=== PATIENT | male | born 1965 | race Caucasian/White ===

== ENCOUNTER 2020-05-01 00:36 | Emergency (ER) | payer OTHER ==
[2020-05-01] MEDS ORDERED: Sodium Chloride 0.9% 2.5 ML Syringe FLUSH PRN (00:53)
[2020-05-01] MEDS ORDERED: Sodium Chloride 0.9% 10 ML Syringe FLUSH PRN (00:53)
--- NOTE | 2020-05-01 00:57 | EDM.PDOC ---
ED HPI GENERAL MEDICAL PROBLEM - General Chief Complaint: Chest Pain Stated Complaint: HEART ISSUES Time Seen by Provider: 05/01/20 00:45 - History of Present Illness INITIAL COMMENTS - FREE TEXT/NARRATIVE: History of present illness: [] [place] like he had pain in his left chest 2 hours ago. He felt diaphoretic. He decided to walk to see if he could get it to go away because it might be anxiety. He ended up walking about 2 miles to get here and by the time he arrived his pain was better. He was still diaphoretic. If not particularly hot out. The patient in the last few years has had 2 episodes where he was evaluated by physicians in hospital because of near syncope. He said the first time he thinks he would completely out and had to be revived. The patient had an evaluation started for a pacemaker in the past but did not follow-up and finish and did not get any ultimate recommendation made. The patient is a non-smoker. He is morbidly obese patient is lost quite a bit of his weight but still remains obese. He personally has not had a heart attack. Review of systems: As per history of present illness and below otherwise all systems reviewed and negative. Past medical history: As per history of present illness and as reviewed below otherwise noncontributory. Surgical history: As per history of present illness and as reviewed below otherwise noncontributory. Social history: No reported history of drug or alcohol abuse. Family history: As per history of present illness and as reviewed below otherwise noncontributory. Physical exam: Constitutional - well developed, well-nourished and in no acute distress HEENT - normocephalic, no evidence of trauma - external nose and mouth normal - no mass in neck and no JVD - mucosae moist EYES - full EOM, PERRL, no icterus - no evidence of inflammation, injection, or drainage Respiratory - no respiratory distress, equal bilateral expansion, lungs clear to auscultation and no abnormal lung sounds Cardiovascular - Regular Rhythm with S1 and S2 appreciated and no murmur, gallop or rub. GI - abdomen soft without distension or organomegaly - normal bowel sounds - no guard or rebound Musculoskeletal no gross deformity of long bones or joints - no tenderness, swelling or edema Neurologic - Alert and oriented times four - CN II-XII grossly intact - motor sensory and coordination symmetrically normal Psychiatric - appropriate mood and affect with normal thought content Hematologic - No petechiae or purpura - mucosa appropriate color and sclera not pale - normal nail bed color and refill Integument -paretic-no rash or evidence of trauma - normal turgor Diagnostics: [] Therapeutics: [] Impression: [] Plan: [] Definitive disposition and diagnosis as appropriate pending reevaluation and review of above. - Related Data Allergies Allergy/AdvReac Type Severity Reaction Status Date / Time No Known Allergies Allergy Verified 05/01/20 00:57 Home Meds: Home Meds Anti Cholesterol Med 05/01/20 [History] Anti Htn Med 05/01/20 [History] ED ROS GENERAL - Review of Systems Review Of Systems: Comprehensive ROS is negative, except as noted in HPI. ED EXAM, GENERAL - Physical Exam Exam: See Below Free Text/Narrative:: My physical exam is in the HPI EKG INTERPRETATION EKG Date: 05/01/20 Rhythm: Other (Sinus tachycardia) Rate (Beats/Min): 101 QRS: Other (Anteroseptal Q waves) Comparison: NA - No Prior EKG EKG Interpretation Comments: Impression no obvious acute injury Course - Vital Signs Last Recorded V/S: Last Vital Signs Temp 96.5 F L 05/01/20 00:37 Pulse 77 05/01/20 02:37 Resp 20 05/01/20 02:37 BP 138/83 05/01/20 02:37 Pulse Ox 96 05/01/20 02:37 The patient had no further pain in the department. 4 hours after his onset of pain the troponin was less than 0.05. Patient was discharged in satisfactory condition. He has Holter monitor at home and cardiology follow-up appointment. - Orders/Labs/Meds Orders: Active Orders 24 hr Category Date Time Status Cardiac Monitoring [RC] . DIRECTED Care 05/01/20 00:53 Active EKG Documentation Completion [RC] AM Care 05/01/20 00:53 Active Sodium Chloride 0.9% [Saline Flush] Med 05/01/20 00:53 Active 10 ml FLUSH ASDIRECTED PRN Sodium Chloride 0.9% [Saline Flush] Med 05/01/20 00:53 Active 2.5 ml FLUSH ASDIRECTED PRN Saline Lock Insert [OM.PC] Stat Oth 05/01/20 00:53 Ordered Medication Orders Sodium Chloride (Saline Flush) 10 ml FLUSH ASDIRECTED PRN PRN Reason: Keep Vein Open Sodium Chloride (Saline Flush) 2.5 ml FLUSH ASDIRECTED PRN PRN Reason: Keep Vein Open Labs: Laboratory Tests 05/01/20 05/01/20 05/01/20 Range/Units 00:52 00:52 02:50 WBC 6.49 (4.0-11.0) K/uL RBC 4.92 (4.50-5.90) M/uL Hgb 14.4 (13.0-17.0) g/dL Hct 42.2 (38.0-50.0) % MCV 85.8 (80.0-98.0) fL MCH 29.3 (27.0-32.0) pg MCHC 34.1 (31.0-37.0) g/dL RDW Std Deviation 44.4 (28.0-62.0) fl RDW Coeff of Jenny 14 (11.0-15.0) % Plt Count 256 (150-400) K/uL MPV 9.60 (7.40-12.00) fL Neut % (Auto) 53.8 (48.0-80.0) % Lymph % (Auto) 30.8 (16.0-40.0) % [place] % (Auto) 11.4 (0.0-15.0) % Eos % (Auto) 3.5 (0.0-7.0) % Baso % (Auto) 0.5 (0.0-1.5) % Neut # (Auto) 3.5 (1.4-5.7) K/uL Lymph # (Auto) 2.0 (0.6-2.4) K/uL [place] # (Auto) 0.7 (0.0-0.8) K/uL Eos # (Auto) 0.2 (0.0-0.7) K/uL Baso # (Auto) 0.0 (0.0-0.1) K/uL Sodium 140 (136-148) mmol/L Potassium 3.5 (3.5-5.1) mmol/L Chloride 104 (98-107) mmol/L Carbon Dioxide 26.0 (21.0-32.0) mmol/L BUN 17 (7.0-18.0) mg/dL Creatinine 1.0 (0.8-1.3) mg/dL Est Cr Clr Drug Dosing TNP Estimated GFR (MDRD) > 60.0 ml/min Glucose 109 H (74-106) mg/dL Calcium 7.9 L (8.5-10.1) mg/dL Total Bilirubin 0.4 (0.2-1.0) mg/dL AST 27 (15-37) IU/L ALT 35 (14-63) IU/L Alkaline Phosphatase 94 (46-116) U/L Troponin I < 0.050 < 0.050 (0.000-0.056) ng/mL Total Protein 6.9 (6.4-8.2) g/dL Albumin 3.7 (3.4-5.0) g/dL Globulin 3.2 (2.6-4.0) g/dL Albumin/Globulin Ratio 1.2 (0.9-1.6) Lipase 167 (73-393) U/L Meds: Medications Generic Name Dose Route Start Last Admin Trade Name Freq PRN Reason Stop Dose Admin Sodium Chloride 10 ml 05/01/20 00:53 Saline Flush FLUSH ASDIRECTED PRN Keep Vein Open Sodium Chloride 2.5 ml 05/01/20 00:53 Saline Flush FLUSH ASDIRECTED PRN Keep Vein Open Departure - Departure Time of Disposition: 03:17 Disposition: Home, Self-Care 01 Condition: Good Clinical Impression: Atypical chest pain - Discharge Information Instructions: Nonspecific Chest Pain, Adult Referrals: PCP,None [Primary Care Provider] - Forms: ED Department Discharge Additional Instructions: He should probably take an aspirin daily. Please have your corporate real estate manager reattach her Holter monitor. It would be nice if you had the symptoms while you are on the monitor. [facility] - cardiology [address] [place] [id number] [facility] - Primary Care [address] [place] [id number] [id number] The following information is given to patients seen in the emergency department who are being discharged to home. This information is to outline your options for follow-up care. We provide all patients seen in our emergency department with a follow-up referral. The need for follow-up, as well as the timing and circumstances, are variable depending upon the specifics of your emergency department visit. If you don't have a primary care physician on staff, we will provide you with a referral. We always advise you to contact your personal physician following an emergency department visit to inform them of the circumstance of the visit and for follow-up with them and/or the need for any referrals to a consulting specialist. The emergency department will also refer you to a specialist when appropriate. T his referral assures that you have the opportunity for follow-up care with a specialist. All of these measure are taken in an effort to provide you with optimal care, which includes your follow-up. Under all circumstances we always encourage you to contact your private physician who remains a resource for coordinating your care. When calling for follow-up care, please make the office aware that this follow-up is from your recent emergency room visit. If for any reason you are refused follow-up, please contact the [facility] Emergency Department at and asked to speak to the emergency department charge nurse. Sepsis Event Note (ED) - Focused Exam Vital Signs: Vital Signs Temp Pulse Resp BP Pulse Ox 05/01/20 02:37 77 20 138/83 96 05/01/20 01:53 82 20 143/87 H 96 05/01/20 00:37 96.5 F L 104 H 20 182/109 H 100 - My Orders Last 24 Hours: My Active Orders 05/01/20 00:53 Cardiac Monitoring [RC] . DIRECTED EKG Documentation Completion [RC] AM Sodium Chloride 0.9% [Saline Flush] 10 ml FLUSH ASDIRECTED PRN Sodium Chloride 0.9% [Saline Flush] 2.5 ml FLUSH ASDIRECTED PRN Saline Lock Insert [OM.PC] Stat - Assessment/Plan Last 24 Hours: My Active Orders 05/01/20 00:53 Cardiac Monitoring [RC] . DIRECTED EKG Documentation Completion [RC] AM Sodium Chloride 0.9% [Saline Flush] 10 ml FLUSH ASDIRECTED PRN Sodium Chloride 0.9% [Saline Flush] 2.5 ml FLUSH ASDIRECTED PRN Saline Lock Insert [OM.PC] Stat
[2020-05-01 01:20] LABS: BLOOD UREA NITROGEN,BUN 17 mg/dL (7.0-18.0); CHLORIDE,CL 104 mmol/L (98-107); GLUCOSE RANDOM 109 mg/dL (74-106); LIPASE 167 U/L (73-393); POTASSIUM,K 3.5 mmol/L (3.5-5.1); SODIUM,NA 140 mmol/L (136-148)
--- NOTE | 2020-05-01 01:40 | CR ---
INDICATION: Chest pain TECHNIQUE: Chest radiograph 1 view COMPARISON: None FINDINGS: Mediastinum: The mediastinum is normal in appearance. The heart silhouette is normal in size and morphology. Lung: Both lungs are unremarkable in appearance with very small lung volumes. No sign of pleural effusion seen. No pneumothorax is identified. Bone and Soft tissue: Unremarkable for age. IMPRESSION: 1. No acute cardiopulmonary disease is seen. Dictated by: Zaire Cohen MD @ 05/01/2020 01:40:26 (Electronically Signed)
== END 2020-05-01 03:29 | disposition home or self-care (01) ==
LOC: MW.ED 00:36
DX: R07.89 Other chest pain (principal); R00.0 Tachycardia, unspecified; E66.01 Morbid (severe) obesity due to excess calories
CPT/HCPCS: 36415; 71045; 71045-26; 80053; 83690; 84484; 85025; 93005; 99283; 99285-25

== ENCOUNTER 2020-10-06 15:49 | Emergency (ER) | payer OTHER ==
--- NOTE | 2020-10-06 17:50 | EDM.PDOC ---
ED HPI GENERAL MEDICAL PROBLEM - General Chief Complaint: General Stated Complaint: MEDICAL CLEARANCE Time Seen by Provider: 10/06/20 15:59 Source of Information: Reports: Patient History Limitations: Reports: No Limitations - History of Present Illness INITIAL COMMENTS - FREE TEXT/NARRATIVE: HISTORY AND PHYSICAL: History of present illness: Patient is a 55-year-old male presenting to the ED a.m. on first night custody for medical screening for incarceration. Complains of suicidal ideation since July. Patient states he has made multiple self-harm attempts in the hopes that they would kill him. Patient admits to a history of major depressive disorder, alcohol use disorder, and substance use disorder of meth via intravenous injection. Patient states he last injected methamphetamine 1 week ago. Patient states that he injected methamphetamine into his muscles and "nerves" and often proceeds to try to break the needles off in his arm in hopes that they will get infected and kill him. Patient also admits to injecting isopropyl alcohol and hydrogen peroxide into his muscles/nerves in hopes that he will sustain enough trauma to kill himself. The timeline of patients self harm is difficult to follow due to pressured speech/flight of ideas. Patient also states that he also attempted genital mutilation by constricting a hair tie around his scrotum and penis and left it there for "4 to 5 days" in hopes that his genitals would fall off because he "does not deserve sex," "does not deserve to be a man," and "does not deserve love." Patient states that due to this, he experiences pain with erections but the redness, swelling, and bruising from this is now resolved. Patient states that his depression is alleviated by being around other people and talking to other people, and he states that if he is alone, especially in a penitentiary cell, he will look for ways to harm himself when no one is watching. Patient denies any current access to firearms. Patient denies fever, chills, shortness of breath, or cough. Denies headache, neck stiff ness, change in vision, syncope, or near syncope. Denies nausea, vomiting, abdominal pain, diarrhea, and constipation. Has not noted any blood in urine or stool. Patient has been eating and drinking appropriately. Review of systems: As per history of present illness and below otherwise all systems reviewed and negative. Past medical history: As per history of present illness and as reviewed below otherwise noncontributory. Surgical history: As per history of present illness and as reviewed below otherwise no ncontributory. Social history: See social history for further information Family history: As per history of present illness and as reviewed below otherwise noncontributory. Physical exam: General: Patient is alert, oriented, and in no acute distress. Patient sitting comfortably on exam table. Vital stable and reviewed by me. HEENT: Atraumatic, normocephalic, pupils equal and reactive bilaterally, negative for conjunctival pallor or scleral icterus, mucous membranes moist, TMs normal bilaterally, throat clear, neck supple, nontender, trachea midline. No drooling or trismus noted. No meningeal signs. No hot potato voice noted. Lungs: Clear to auscultation, breath sounds equal bilaterally, chest nontender. Heart: S1S2, regular rate and rhythm without overt murmur Abdomen: Soft, nondistended, nontender. Negative for masses or hepatosplenomegaly. Negative for costovertebral tenderness. Pelvis: Stable nontender. Genitourinary: Welder Fitter Arc at bedside MAYRA Cherry. No hernias noted. Testicles are round, soft, without masses. No scrotal tenderness. No erythema, penile drainage, masses, lesions, or rashes noted. Rectal: No obvious external masses or hernias. State is appropriate in size and is nontender. Rectal tone is appropriate. Skin: Numerous injection scars noted on the bilateral antecubital fossa, bilateral forearms, and bilateral anterior upper arm with various ecchymosis noted to bilateral forearms. Full ROM of all extremities without pain or deficit. Radial pulses grossly intact bilaterally with cap refill < 2 seconds. Intact sensation to light and deep touch of bilateral upper extremities. Compartments are soft of bilateral upper extremities. Otherwise, intact, warm, dry. No lesions or rashes noted. Extremities: See skin. Otherwise, atraumatic, negative for cords or calf pain. Neurovascular unremarkable. Neuro: Awake, alert, oriented. Cranial nerves II through XII unremarkable. Cerebellum unremarkable. Motor and sensory unremarkable throughout. Exam nonfocal. Notes: On initial exam, patient does have pressured speech and flight of ideas. He does admit to using methamphetamine chronically and he does have bruising and track jones on his bilateral forearms consistent with his HPI. He does express suicidal ideation, and although he does not have an exact plan at this time, he intends to self-harm once he is left alone/ he expresses improvement with talking to people. He has had several attempts with self- mutilation with the intent to harm himself and I do feel that patient requires inpatient psychiatric evaluation. [facility] at capacity. [facility] at capacity. [facility], Dr. Bullock, psychiatry, consulted on patient and will fax patient information pending accepting. Dr. Bullock accepting at 22:00. EMS arranged. Diagnostics: CBC, CMP, UA, UDS, troponin, lipase, CXR, x-ray left humerus, x-ray right humerus, x-ray left forearm, x-ray right forearm Therapeutics: Zyprexa 20mg PO Impression: Suicidal ideation Self mutilation Methamphetamine use Pressured speech / flight of ideas Plan: Transfer to [facility] via EMS to Dr. Bullock Definitive disposition and diagnosis as appropriate pending reevaluation and rev iew of above. - Related Data Allergies Allergy/AdvReac Type Severity Reaction Status Date / Time No Known Allergies Allergy Verified 10/06/20 16:10 Home Meds: Home Meds Anti Cholesterol Med 05/01/20 [History] Anti Htn Med 05/01/20 [History] Past Medical History Cardiovascular History: Reports: None, High Cholesterol, Hypertension Psychiatric History: Reports: Anxiety, Suicidal Ideation - Past Surgical History Cardiovascular Surgical History: Reports: None Social & Family History - Family History Family Medical History: No Pertinent Family History - Tobacco Use Tobacco Use Status *Q: Never Tobacco User - Caffeine Use Caffeine Use: Reports: None - Recreational Drug Use Recreational Drug Use: No ED ROS GENERAL - Review of Systems Review Of Systems: Comprehensive ROS is negative, except as noted in HPI. ED EXAM, GENERAL - Physical Exam Exam: See Below (see dictation) Course - Vital Signs Last Recorded V/S: Last Vital Signs Temp 97.0 F 10/06/20 16:11 Pulse 70 10/06/20 22:10 Resp 16 10/06/20 22:10 BP 121/83 10/06/20 22:10 Pulse Ox 95 10/06/20 22:10 - Orders/Labs/Meds Labs: Laboratory Tests 10/06/20 10/06/20 10/06/20 Range/Units 17:35 17:35 17:35 WBC 9.87 (4.0-11.0) K/uL RBC 5.56 (4.50-5.90) M/uL Hgb 15.5 (13.0-17.0) g/dL Hct 44.8 (38.0-50.0) % MCV 80.6 (80.0-98.0) fL MCH 27.9 (27.0-32.0) pg MCHC 34.6 (31.0-37.0) g/dL RDW Std Deviation 39.0 (28.0-62.0) fl RDW Coeff of Jenny 13 (11.0-15.0) % Plt Count 264 (150-400) K/uL MPV 9.90 (7.40-12.00) fL Neut % (Auto) 78.9 (48.0-80.0) % Lymph % (Auto) 13.3 L (16.0-40.0) % [place] % (Auto) 7.1 (0.0-15.0) % Eos % (Auto) 0.5 (0.0-7.0) % Baso % (Auto) 0.2 (0.0-1.5) % Neut # (Auto) 7.8 H (1.4-5.7) K/uL Lymph # (Auto) 1.3 (0.6-2.4) K/uL [place] # (Auto) 0.7 (0.0-0.8) K/uL Eos # (Auto) 0.1 (0.0-0.7) K/uL Baso # (Auto) 0.0 (0.0-0.1) K/uL Nucleated RBC % 0.0 /100WBC Nucleated RBCs # 0 K/uL Sodium 139 (136-148) mmol/L Potassium 4.1 (3.5-5.1) mmol/L Chloride 101 (98-107) mmol/L Carbon Dioxide 23.6 (21.0-32.0) mmol/L BUN 25 H (7.0-18.0) mg/dL Creatinine 1.4 H (0.8-1.3) mg/dL Est Cr Clr Drug Dosing 68.17 mL/min Estimated GFR (MDRD) 52.8 ml/min Glucose 102 (74-106) mg/dL Calcium 9.0 (8.5-10.1) mg/dL Magnesium 2.5 H (1.8-2.4) mg/dL Total Bilirubin 0.9 (0.2-1.0) mg/dL AST 21 (15-37) IU/L ALT 27 (14-63) IU/L Alkaline Phosphatase 89 (46-116) U/L Troponin I < 0.050 (0.000-0.056) ng/mL Total Protein 7.8 (6.4-8.2) g/dL Albumin 4.1 (3.4-5.0) g/dL Globulin 3.7 (2.6-4.0) g/dL Albumin/Globulin Ratio 1.1 (0.9-1.6) Lipase 123 (73-393) U/L TSH 3rd Generation 1.42 (0.36-3.74) uIU/mL Urine Color Urine Appearance Urine pH (5.0-8.0) Ur Specific [place] (1.001-1.035) Urine Protein (NEGATIVE) mg/dL Urine Glucose (UA) (NEGATIVE) mg/dL Urine Ketones (NEGATIVE) mg/dL Urine Occult Blood (NEGATIVE) Urine Nitrite (NEGATIVE) Urine Bilirubin (NEGATIVE) Urine Ictotest Urine Urobilinogen (<2.0) EU/dL Ur Leukocyte Esterase (NEGATIVE) U Hyaline Cast (Auto) (0-2/LPF) Urine RBC (0-2/HPF) Urine WBC (0-5/HPF) Ur Epithelial Cells (NONE-FEW) Urine Bacteria (NEGATIVE) Salicylates <0.2 (0-20) mg/dL Urine Opiates Screen (NEGATIVE) Ur Oxycodone Screen (NEGATIVE) Urine Methadone Screen (NEGATIVE) Acetaminophen <2.0 ug/mL Ur Barbiturates Screen (NEGATIVE) Ur Phencyclidine Scrn (NEGATIVE) Ur Amphetamine Screen (NEGATIVE) U Methamphetamines Scrn (NEGATIVE) U Benzodiazepines Scrn (NEGATIVE) U Cocaine Metab Screen (NEGATIVE) U Marijuana (THC) Screen (NEGATIVE) Ethyl Alcohol < 3.0 mg/dL SARS-CoV-2 RNA (MARCIE) (NEGATIVE) 10/06/20 10/06/20 10/06/20 Range/Units 18:18 19:15 19:15 WBC (4.0-11.0) K/uL RBC (4.50-5.90) M/uL Hgb (13.0-17.0) g/dL Hct (38.0-50.0) % MCV (80.0-98.0) fL MCH (27.0-32.0) pg MCHC (31.0-37.0) g/dL RDW Std Deviation (28.0-62.0) fl RDW Coeff of Jenny (11.0-15.0) % Plt Count (150-400) K/uL MPV (7.40-12.00) fL Neut % (Auto) (48.0-80.0) % Lymph % (Auto) (16.0-40.0) % [place] % (Auto) (0.0-15.0) % Eos % (Auto) (0.0-7.0) % Baso % (Auto) (0.0-1.5) % Neut # (Auto) (1.4-5.7) K/uL Lymph # (Auto) (0.6-2.4) K/uL [place] # (Auto) (0.0-0.8) K/uL Eos # (Auto) (0.0-0.7) K/uL Baso # (Auto) (0.0-0.1) K/uL Nucleated RBC % /100WBC Nucleated RBCs # K/uL Sodium (136-148) mmol/L Potassium (3.5-5.1) mmol/L Chloride (98-107) mmol/L Carbon Dioxide (21.0-32.0) mmol/L BUN (7.0-18.0) mg/dL Creatinine (0.8-1.3) mg/dL Est Cr Clr Drug Dosing mL/min Estimated GFR (MDRD) ml/min Glucose (74-106) mg/dL Calcium (8.5-10.1) mg/dL Magnesium (1.8-2.4) mg/dL Total Bilirubin (0.2-1.0) mg/dL AST (15-37) IU/L ALT (14-63) IU/L Alkaline Phosphatase (46-116) U/L Troponin I (0.000-0.056) ng/mL Total Protein (6.4-8.2) g/dL Albumin (3.4-5.0) g/dL Globulin (2.6-4.0) g/dL Albumin/Globulin Ratio (0.9-1.6) Lipase (73-393) U/L TSH 3rd Generation (0.36-3.74) uIU/mL Urine Color YELLOW Urine Appearance CLEAR Urine pH 5.5 (5.0-8.0) Ur Specific [place] >= 1.030 (1.001-1.035) Urine Protein TRACE H (NEGATIVE) mg/dL Urine Glucose (UA) NEGATIVE (NEGATIVE) mg/dL Urine Ketones NEGATIVE (NEGATIVE) mg/dL Urine Occult Blood NEGATIVE (NEGATIVE) Urine Nitrite NEGATIVE (NEGATIVE) Urine Bilirubin SMALL H (NEGATIVE) Urine Ictotest NEGATIVE Urine Urobilinogen 0.2 (<2.0) EU/dL Ur Leukocyte Esterase NEGATIVE (NEGATIVE) U Hyaline Cast (Auto) FEW (0-2/LPF) Urine RBC 0-1 (0-2/HPF) Urine WBC 0-1 (0-5/HPF) Ur Epithelial Cells RARE (NONE-FEW) Urine Bacteria FEW (NEGATIVE) Salicylates (0-20) mg/dL Urine Opiates Screen NEGATIVE (NEGATIVE) Ur Oxycodone Screen NEGATIVE (NEGATIVE) Urine Methadone Screen NEGATIVE (NEGATIVE) Acetaminophen ug/mL Ur Barbiturates Screen NEGATIVE (NEGATIVE) Ur Phencyclidine Scrn NEGATIVE (NEGATIVE) Ur Amphetamine Screen POSITIVE (NEGATIVE) U Methamphetamines Scrn POSITIVE (NEGATIVE) U Benzodiazepines Scrn NEGATIVE (NEGATIVE) U Cocaine Metab Screen NEGATIVE (NEGATIVE) U Marijuana (THC) Screen NEGATIVE (NEGATIVE) Ethyl Alcohol mg/dL SARS-CoV-2 RNA (MARCIE) NEGATIVE (NEGATIVE) Meds: Medications Discontinued Medications Generic Name Dose Route Start Last Admin Trade Name Freq PRN Reason Stop Dose Admin Olanzapine 10 mg/ Sterile 2.1 mls @ 999 mls/hr 10/06/20 18:35 Water IM 10/06/20 18:36 ONETIME ONE Olanzapine 10 mg 10/06/20 18:35 10/06/20 18:59 Zyprexa PO 10/06/20 18:36 10 mg ONETIME ONE Administration Departure - Departure Time of Disposition: 22:37 Disposition: DC/Tfer to Psych Hosp/Unit 65 Clinical Impression: Suicidal ideation, Self-mutilation, Methamphetamine abuse - Discharge Information Referrals: PCP,Not In Area [Primary Care Provider] - Forms: ED Department Discharge Sepsis Event Note (ED) - Evaluation Sepsis Screening Result: No Definite Risk
--- NOTE | 2020-10-06 17:55 | PCM.EKG ---
#1 Interpretation EKG Interpretation Comments: Heart rate = 93 bpm, normal sinus rhythm, normal QRS interval, no STEMI. EKG and rhythm strip interpreted by me at [id number]
[2020-10-06 18:14] LABS: BLOOD UREA NITROGEN,BUN 25 mg/dL (7.0-18.0); CARBON DIOXIDE,CO2 23.6 mmol/L (21.0-32.0); CHLORIDE,CL 101 mmol/L (98-107); GLUCOSE RANDOM 102 mg/dL (74-106); LIPASE 123 U/L (73-393); POTASSIUM,K 4.1 mmol/L (3.5-5.1); SODIUM,NA 139 mmol/L (136-148)
[2020-10-06 18:19] LABS: ACETAMINOPHEN <2.0 ug/mL
--- NOTE | 2020-10-06 18:26 | CR ---
INDICATION: I wait for foreign body TECHNIQUE: Two views right for COMPARISON: None FINDINGS: Bones: Alignment is normal. No fractures or bone lesions. Joint spaces: Unremarkable. Soft tissues: No radiopaque foreign bodies. IMPRESSION: No osseous or soft tissue abnormalities. No radiopaque foreign bodies. Dictated by Milton Snow MD @ Oct 06 2020 6:26PM Signed by Dr. Milton Snow @ Oct 06 2020 6:33PM
--- NOTE | 2020-10-06 18:32 | CR ---
INDICATION: Evaluate for foreign body TECHNIQUE: Views left forearm COMPARISON: None FINDINGS: Bones: Alignment is normal. No fractures or bone lesions. Joint spaces: Unremarkable. Soft tissues: Radiopaque foreign bodies. IMPRESSION: No osseous or soft tissue abnormalities. No radiopaque foreign bodies. Dictated by Milton Snow MD @ Oct 06 2020 6:25PM Signed by Dr. Milton Snow @ Oct 06 2020 6:34PM
--- NOTE | 2020-10-06 18:32 | CR ---
INDICATION: chest pain. 1 image sent. prior 05-01-2020 TECHNIQUE: Chest 1 view. COMPARISON: 05/01/20 FINDINGS: Cardiovascular and mediastinum: Heart size and vasculature are normal in caliber and appearance. Mediastinum is within normal limits. Lungs and pleural space: Lungs are clear. No sign of infiltrate or mass. No sign of pleural effusion. No pneumothorax. Bones and soft tissues: No significant findings. IMPRESSION: Unremarkable chest. Dictated by: Milton Snow MD @ 10/06/2020 18:31:41 (Electronically Signed)
[2020-10-06] MEDS ORDERED: OLANZapine 5 MG Tab PO ONE (18:35)
[2020-10-06] MEDS ORDERED: OLANZapine 10 MG in Water For Injection, Sterile 2.1 ML IM ONE (18:35)
--- NOTE | 2020-10-06 18:38 | CR ---
INDICATION: Evaluate for foreign body TECHNIQUE: Two views right forearm COMPARISON: None FINDINGS: Bones: Alignment is normal. No fractures or bone lesions. Joint spaces: Unremarkable. Soft tissues: No radiopaque foreign bodies. IMPRESSION: No osseous or soft tissue abnormalities. No radiopaque foreign bodies. Dictated by Milton Snow MD @ Oct 06 2020 6:36PM Signed by Dr. Milton Snow @ Oct 06 2020 6:36PM
--- NOTE | 2020-10-06 18:40 | CR ---
INDICATION: Evaluate for foreign bodies TECHNIQUE: Two views left humerus COMPARISON: None FINDINGS: Bones: Alignment is normal. No fractures or bone lesions. Joint spaces: Unremarkable. Soft tissues: No radiopaque foreign bodies. IMPRESSION: No osseous or soft tissue abnormalities. No radiopaque foreign bodies. Dictated by Milton Snow MD @ Oct 06 2020 6:39PM Signed by Dr. Milton Snow @ Oct 06 2020 6:39PM INDICATION: I wait for foreign body TECHNIQUE: Two views right for COMPARISON: None FINDINGS: Bones: Alignment is normal. No fractures or bone lesions. Joint spaces: Unremarkable. Soft tissues: No radiopaque foreign bodies. IMPRESSION: No osseous or soft tissue abnormalities. No radiopaque foreign bodies. Dictated by Milton Snow MD @ Oct 06 2020 6:26PM Signed by Dr. Milton Snow @ Oct 06 2020 6:33PM Report Signed by Proxy. CHANDANA
== END 2020-10-06 23:25 ==
LOC: MW.ED 15:49
DX: R45.851 Suicidal ideations (principal); F15.10 Other stimulant abuse, uncomplicated; Z20.822 Contact with and (suspected) exposure to COVID-19; Z91.5 Personal history of self-harm
CPT/HCPCS: 36415; 71045; 73060; 73090; 80053; 80143; 80179; 80305; 80307; 81001; 83690; 83735; 84443; 84484; 85025; 87635; 93005; 99285; A9270; 99284; U0002

== ENCOUNTER 2021-04-24 07:31 | Emergency (ER) | payer OTHER ==
[2021-04-24] MEDS ORDERED: Dexamethasone 10 MG/ML SDV IM STA (07:56)
[2021-04-24] MEDS ORDERED: Cephalexin 500 MG Cap PO ONE (07:56)
--- NOTE | 2021-04-24 08:02 | EDM.PDOC ---
ED HPI GENERAL MEDICAL PROBLEM - General Chief Complaint: ENT Problem Stated Complaint: maybe bug bite Time Seen by Provider: 04/24/21 07:40 Source of Information: Reports: Patient History Limitations: Reports: No Limitations - History of Present Illness INITIAL COMMENTS - FREE TEXT/NARRATIVE: Patient is a 56-year-old male brought in today for left eye swelling. Patient states that he was stung by something on Sunday. He felt a sting but did not exactly see what it was. States since that time has had swelling around the left eye. Has been tried Benadryl and ice at home with slight improvement. States in the morning time his eyes were swollen. He is able to see currently but occasionally his eyes swells up and he has trouble seeing. Denies any drainage of the eye any fever chills nausea vomiting any other associated symptoms. Left Eye Pain Score (Numeric/FACES): 3 - Related Data Allergies Allergy/AdvReac Type Severity Reaction Status Date / Time No Known Allergies Allergy Verified 04/24/21 07:43 Home Meds: Home Meds Anti Cholesterol Med 05/01/20 [History] Anti Htn Med 05/01/20 [History] FLUoxetine [PROzac] 1 dose PO DAILY 04/24/21 [History] Past Medical History Cardiovascular History: Reports: None, High Cholesterol, Hypertension Psychiatric History: Reports: Anxiety, Suicidal Ideation - Past Surgical History Cardiovascular Surgical History: Reports: None Social & Family History - Family History Family Medical History: No Pertinent Family History - Caffeine Use Caffeine Use: Reports: None ED ROS ENT - Review of Systems Review Of Systems: See Below Constitutional: Reports: No Symptoms HEENT: Reports: Other (eye swelling) Respiratory: Reports: No Symptoms Endocrine: Reports: No Symptoms GI/Abdominal: Reports: No Symptoms : Reports: No Symptoms Musculoskeletal: Reports: No Symptoms Skin: Reports: No Symptoms Neurological: Reports: No Symptoms Psychiatric: Reports: No Symptoms Hematologic/Lymphatic: Reports: No Symptoms Immunologic: Reports: No Symptoms ED EXAM, ENT - Physical Exam Exam: See Below Exam Limited By: No Limitations General Appearance: Alert, WD/WN, No Apparent Distress Eye Exam: Left Eye: Periorbital Changes, Bilateral Eye: EOMI, PERRL Head: Atraumatic, Normocephalic Respiratory/Chest: No Respiratory Distress, Lungs Clear Cardiovascular: Normal Peripheral Pulses GI/Abdominal: Normal Bowel Sounds Neurological: Alert, Oriented Skin: Warm Course - Vital Signs Last Recorded V/S: Last Vital Signs Temp 97.6 F 04/24/21 07:46 Pulse 76 04/24/21 07:46 Resp 16 04/24/21 07:46 BP 155/90 H 04/24/21 07:46 Pulse Ox 96 04/24/21 07:46 - Orders/Labs/Meds Orders: Active Orders 24 hr Category Date Time Status cephALEXin [Keflex] Med 04/24/21 07:56 Once 500 mg PO ONETIME ONE dexAMETHasone [Decadron] Med 04/24/21 07:56 Stat 10 mg IM NOW STA Departure - Departure Time of Disposition: 08:01 Disposition: Home, Self-Care 01 Condition: Good Clinical Impression: Periorbital cellulitis of left eye - Discharge Information *PRESCRIPTION DRUG MONITORING PROGRAM REVIEWED*: Not Applicable *COPY OF PRESCRIPTION DRUG MONITORING REPORT IN PATIENT TAMARA: Not Applicable Instructions: Preseptal Cellulitis, Adult Referrals: Geovanni Whittaker NP [Primary Care Provider] - Additional Instructions: The following information is given to patients seen in the emergency department who are being discharged to home. This information is to outline your options for follow-up care. We provide all patients seen in our emergency department with a follow-up referral. The need for follow-up, as well as the timing and circumstances, are variable depending upon the specifics of your emergency department visit. If you don't have a primary care physician on staff, we will provide you with a referral. We always advise you to contact your personal physician following an emergency department visit to inform them of the circumstance of the visit and for follow-up with them and/or the need for any referrals to a consulting specialist. The emergency department will also refer you to a specialist when appropriate. This referral assures that you have the opportunity for follow-up care with a specialist. All of these measure are taken in an effort to provide you with optimal care, which includes your follow-up. Under all circumstances we always encourage you to contact your private physician who remains a resource for coordinating your care. When calling for follow-up care, please make the office aware that this follow-up is from your recent emergency room visit. If for any reason you are refused follow-up, please contact the [facility] Emergency Department at and asked to speak to the emergency department charge nurse. Please follow up with your primary care physician. If you do not have a primary care physician, see below: [facility] [address] [place] [address] My [facility] [address] [place] [address] You are seen today for swelling around your left eye. This could be a possible allergic related for an early cellulitis which is an infection of the skin in the right eye. We gave you steroids and also antibiotics to help out with the symptoms. Please follow-up with your primary care physician or if he has any other concerning signs or symptoms you can also follow-up the ER as well. Sepsis Event Note (ED) - Evaluation Sepsis Screening Result: No Definite Risk - Focused Exam Vital Signs: Vital Signs Temp Pulse Resp BP Pulse Ox 04/24/21 07:46 97.6 F 76 16 155/90 H 96 - My Orders Last 24 Hours: My Active Orders 04/24/21 07:56 cephALEXin [Keflex] 500 mg PO ONETIME ONE 04/24/21 07:56 dexAMETHasone [Decadron] 10 mg IM NOW STA - Assessment/Plan Last 24 Hours: My Active Orders 04/24/21 07:56 cephALEXin [Keflex] 500 mg PO ONETIME ONE 04/24/21 07:56 dexAMETHasone [Decadron] 10 mg IM NOW STA Plan: Patient is a 56-year-old male presents today for left eye swelling. There is some swelling around the left eye to be possible allergic related or early cellulitis. Patient has tried ice and Benadryl at home with slight relief. We will prescribe you IM Decadron to send patient home with Keflex.
== END 2021-04-24 08:19 | disposition home or self-care (01) ==
LOC: MW.ED 07:31
DX: L03.213 Periorbital cellulitis (principal); I10 Essential (primary) hypertension; Z79.899 Other long term (current) drug therapy
CPT/HCPCS: 96372; 99283; A9270; J1100

== ENCOUNTER 2022-05-09 08:00 | Emergency (ER) | payer OTHER ==
[2022-05-09] MEDS ORDERED: Aspirin 81 MG Tab.Chew PO ONE (12:37)
[2022-05-09] MEDS ORDERED: Sodium Chloride 0.9% 1,000 ML IV ONE ×2 (13:40→15:45)
[2022-06-07 15:26] LABS: BLOOD UREA NITROGEN,BUN 19 mg/dL (7.0-18.0); CARBON DIOXIDE,CO2 25.1 mmol/L (21.0-32.0); CHLORIDE,CL 102 mmol/L (98-107); GLUCOSE RANDOM 101 mg/dL (74-106); POTASSIUM,K 3.7 mmol/L (3.5-5.1); SODIUM,NA 139 mmol/L (136-148)
[2022-06-07 15:27] LABS: ESTIMATED GFR 34 mL/min (>60)
== END 2022-05-09 16:38 | disposition home or self-care (01) ==
LOC: MW.ED 08:00
DX: R55 Syncope and collapse (principal); F41.9 Anxiety disorder, unspecified
CPT/HCPCS: 36415; 71045; 80053; 84439; 84443; 84484; 85025; 96360; 96361; 99284; A9270; J7030

== ENCOUNTER 2023-01-09 00:55 | Inpatient (IN) | payer OTHER ==
[2023-01-09] MEDS ORDERED: Sodium Chloride 0.9% 1,000 ML IV ONE ×3 (01:06→01:56)
[2023-01-09] MEDS ORDERED: Ondansetron 4 MG/2 ML SDV IVPUSH ONE (01:06)
[2023-01-09] MEDS ORDERED: Dicyclomine 10 MG Cap PO ONE (01:10)
[2023-01-09 01:29] LABS: BASOPHILS PERCENT AUTO 0.2 % (0.0-1.5); EOSINOPHILS PERCENT AUTO 0.1 % (0.0-7.0); HEMATOCRIT 41.4 % (38.0-50.0); HEMOGLOBIN 14.6 g/dL (13.0-17.0); LYMPHOCYTES ABSOLUTE AUTO 1.4 K/uL (0.6-2.4); LYMPHOCYTES PERCENT AUTO 8.2 % (16.0-40.0); MEAN CORPUSCULAR HEMOGLOBIN 27.5 pg (27.0-32.0); MEAN CORPUSCULAR HGB CONC 35.3 g/dL (31.0-37.0); MEAN CORPUSCULAR VOLUME 78.1 fL (80.0-98.0); MONOCYTES ABSOLUTE AUTO 1.4 K/uL (0.0-0.8); MONOCYTES PERCENT AUTO 8.5 % (0.0-15.0); NRBC ABSOLUTE 0 K/uL; PLATELET COUNT,PLT 276 K/uL (150-400); WHITE BLOOD CELL COUNT,WBC 16.88 K/uL (4.0-11.0)
[2023-01-09 01:51] LABS: A/G RATIO 1.4 (0.9-1.6); ALANINE AMINOTRANSFERASE,ALT 32 IU/L (14-63); ALBUMIN 4.3 g/dL (3.4-5.0); ALKALINE PHOSPHATASE 98 U/L (46-116); ASPARTATE AMNIOTRANSFERASE,AST 33 IU/L (15-37); BILIRUBIN TOTAL 0.7 mg/dL (0.2-1.0); BLOOD UREA NITROGEN,BUN 65 mg/dL (7.0-18.0); CALCIUM 8.1 mg/dL (8.5-10.1); CARBON DIOXIDE,CO2 22.2 mmol/L (21.0-32.0); CHLORIDE,CL 91 mmol/L (98-107); EST CRCL DRUG DOSING (CG) 18.11 mL/min; GLUCOSE RANDOM 118 mg/dL (74-106); LIPASE 141 U/L (73-393); MAGNESIUM 2.6 mg/dL (1.8-2.4); POTASSIUM,K 3.9 mmol/L (3.5-5.1); PROTEIN TOTAL,TP 7.4 g/dL (6.4-8.2); SODIUM,NA 130 mmol/L (136-148)
[2023-01-09 01:52] LABS: ESTIMATED GFR 13 mL/min (>60); ETHANOL BLOOD MEDICAL < 3.0 mg/dL
[2023-01-09 02:41] LABS: APPEARANCE,URINE CLEAR; BILIRUBIN,URINE NEGATIVE (NEGATIVE); COLOR,URINE YELLOW; GLUCOSE,URINE NEGATIVE (NEGATIVE); KETONES,URINE NEGATIVE (NEGATIVE); LEUKOCYTE ESTERASE,URINE NEGATIVE (NEGATIVE); NITRITE,URINE NEGATIVE (NEGATIVE); OCCULT BLOOD,URINE MODERATE (NEGATIVE); PROTEIN,URINE TRACE mg/dL (NEGATIVE); UROBILINOGEN,URINE 0.2 EU/dL (<2.0)
[2023-01-09 02:55] LABS: BACTERIA,URINE FEW (NEGATIVE); EPITHELIAL CELLS,URINE RARE (NONE-FEW); RBC,URINE 0-1 (0-2/HPF); WBC,URINE 0-2 (0-5/HPF)
[2023-01-09 02:56] LABS: CALCIUM OXALATE CRYSTALS,URINE RARE (NEGATIVE); HYALINE CASTS,URINE 0-2 (0-2/LPF)
[2023-01-09 02:57] LABS: AMPHETAMINES SCREEN, URINE PRESUMPTIVE POSITIVE (CUTOFF=500); BARBITURATE SCREEN,URINE NEGATIVE (CUTOFF=200); BENZODIAZEPINES SCREEN,URINE NEGATIVE (CUTOFF=150); BUPRENORPHINE SCREEN,URINE NEGATIVE (CUTOFF=10); METHADONE SCREEN, URINE NEGATIVE (CUTOFF=200); METHAMPHETAMINES SCREEN, URINE PRESUMPTIVE POSITIVE (CUTOFF=500); OXYCODONE SCREEN,URINE NEGATIVE (CUT0FF=100); PCP SCREEN,URINE NEGATIVE (CUTOFF=25); PROPOXYPHENE SCREEN,URINE NEGATIVE (CUTOFF=300); THC SCREEN,URINE 20 NG/ML NEGATIVE (CUTOFF=50)
[2023-01-09 03:01] LABS: CREATININE,URINE RAND 118.9 mg/dL
[2023-01-09] MEDS ORDERED: Ondansetron 4 MG/2 ML SDV IVPUSH PRN (04:22)
[2023-01-09] MEDS ORDERED: Acetaminophen 325 MG Tab PO PRN (04:23)
[2023-01-09] MEDS: Sodium Chloride 0.9% 1,000 ML IV SCH ×3 (07:39→23:47)
[2023-01-09] MEDS ORDERED: Sodium Chloride 0.9% 2.5 ML Syringe FLUSH PRN (08:16)
[2023-01-09] MEDS ORDERED: Sodium Chloride 0.9% 10 ML Syringe FLUSH PRN (08:16)
[2023-01-09 08:28] LABS: BASOPHILS PERCENT AUTO 0.1 % (0.0-1.5); EOSINOPHILS ABSOLUTE AUTO 0.1 K/uL (0.0-0.7); EOSINOPHILS PERCENT AUTO 0.4 % (0.0-7.0); HEMATOCRIT 37.7 % (38.0-50.0); LYMPHOCYTES ABSOLUTE AUTO 1.2 K/uL (0.6-2.4); MEAN CORPUSCULAR HEMOGLOBIN 27.5 pg (27.0-32.0); MEAN CORPUSCULAR HGB CONC 34.5 g/dL (31.0-37.0); MEAN CORPUSCULAR VOLUME 79.9 fL (80.0-98.0); MONOCYTES ABSOLUTE AUTO 0.9 K/uL (0.0-0.8); MONOCYTES PERCENT AUTO 7.6 % (0.0-15.0); NEUTROPHILS ABSOLUTE AUTO 9.1 K/uL (1.4-5.7); NEUTROPHILS PERCENT AUTO 80.9 % (48.0-80.0); PLATELET COUNT,PLT 229 K/uL (150-400); RED BLOOD CELL COUNT 4.72 M/uL (4.50-5.90); WHITE BLOOD CELL COUNT,WBC 11.27 K/uL (4.0-11.0)
[2023-01-09 08:47] LABS: CALCIUM 7.5 mg/dL (8.5-10.1); CARBON DIOXIDE,CO2 22.8 mmol/L (21.0-32.0); CREATININE 2.6 mg/dL (0.8-1.3); EST CRCL DRUG DOSING (CG) 34.82 mL/min; PHOSPHORUS 4.1 mg/dL (2.6-4.7); POTASSIUM,K 3.7 mmol/L (3.5-5.1)
[2023-01-09] MEDS: Heparin Sodium 5,000 Units/ML Vial SUBCUT SCH ×2 (09:08→20:01)
[2023-01-09] MEDS: Metoprolol Succinate 25 MG Tab.ER PO SCH (13:10)
[2023-01-09] MEDS ORDERED: atorvaSTATin 20 MG Tab PO SCH (21:00)
[2023-01-09] MEDS ORDERED: Melatonin 3 MG Tab PO SCH (21:00)
[2023-01-09] MEDS ORDERED: QUEtiapine 25 MG Tab PO SCH (21:00)
[2023-01-09] MEDS ORDERED: Famotidine 20 MG Tab PO SCH (21:00)
[2023-01-10] MEDS: Sodium Chloride 0.9% 1,000 ML IV SCH (05:40)
[2023-01-10 05:53] LABS: BASOPHILS PERCENT AUTO 0.2 % (0.0-1.5); EOSINOPHILS ABSOLUTE AUTO 0.1 K/uL (0.0-0.7); EOSINOPHILS PERCENT AUTO 1.2 % (0.0-7.0); HEMATOCRIT 35.6 % (38.0-50.0); HEMOGLOBIN 11.8 g/dL (13.0-17.0); LYMPHOCYTES ABSOLUTE AUTO 1.2 K/uL (0.6-2.4); LYMPHOCYTES PERCENT AUTO 13.9 % (16.0-40.0); MEAN CORPUSCULAR HEMOGLOBIN 27.1 pg (27.0-32.0); MEAN CORPUSCULAR HGB CONC 33.1 g/dL (31.0-37.0); MEAN CORPUSCULAR VOLUME 81.7 fL (80.0-98.0); MONOCYTES ABSOLUTE AUTO 0.9 K/uL (0.0-0.8); NEUTROPHILS ABSOLUTE AUTO 6.5 K/uL (1.4-5.7); NEUTROPHILS PERCENT AUTO 74.7 % (48.0-80.0); PLATELET COUNT,PLT 198 K/uL (150-400); RED BLOOD CELL COUNT 4.36 M/uL (4.50-5.90); WHITE BLOOD CELL COUNT,WBC 8.66 K/uL (4.0-11.0)
[2023-01-10 06:10] LABS: CALCIUM 7.4 mg/dL (8.5-10.1); CARBON DIOXIDE,CO2 24.8 mmol/L (21.0-32.0); CREATININE 1.1 mg/dL (0.8-1.3); EST CRCL DRUG DOSING (CG) 82.3 mL/min; PHOSPHORUS 2.2 mg/dL (2.6-4.7); POTASSIUM,K 4.5 mmol/L (3.5-5.1)
[2023-01-10] MEDS ORDERED: Omeprazole 20 MG Cap.CR PO SCH (07:30)
[2023-01-10] MEDS: Metoprolol Succinate 25 MG Tab.ER PO SCH (08:32)
[2023-01-10] MEDS: Heparin Sodium 5,000 Units/ML Vial SUBCUT SCH (08:33)
[2023-01-10] MEDS ORDERED: buPROPion 150 MG Tab.ER PO SCH (09:00)
[2023-01-10] MEDS ORDERED: Cetirizine 10 MG Tab PO SCH (09:00)
== END 2023-01-10 10:55 | disposition home or self-care (01) | DRG 683 ==
LOC: MW.ED 00:55 → MW.MS 03:03
PROVIDERS: ADMIT Internal Medicine; ATTEND Internal Medicine
DX: N17.9 Acute kidney failure, unspecified (principal); E87.1 Hypo-osmolality and hyponatremia; K52.9 Noninfective gastroenteritis and colitis, unspecified; N13.9 Obstructive and reflux uropathy, unspecified; E78.00 Pure hypercholesterolemia, unspecified; E86.0 Dehydration; E78.5 Hyperlipidemia, unspecified; K22.2 Esophageal obstruction; N35.919 Unspecified urethral stricture, male, unspecified site; F15.10 Other stimulant abuse, uncomplicated; E66.9 Obesity, unspecified; I10 Essential (primary) hypertension; Z20.822 Contact with and (suspected) exposure to COVID-19; I48.0 Paroxysmal atrial fibrillation; F32.A Depression, unspecified; F41.9 Anxiety disorder, unspecified; F43.10 Post-traumatic stress disorder, unspecified; H91.90 Unspecified hearing loss, unspecified ear; H54.7 Unspecified visual loss; K21.9 Gastro-esophageal reflux disease without esophagitis; E87.8 Other disorders of electrolyte and fluid balance, not elsewhere classified; Z79.899 Other long term (current) drug therapy; Z68.31 Body mass index [BMI] 31.0-31.9, adult
CPT/HCPCS: 36415; 51702; 74176; 74176-26; 80048; 80053; 80305-QW; 80307; 81001; 82550; 82570; 83690; 83735; 83935; 84100; 84300; 84540; 85025; 87045; 87046; 87324; 87449; 87899; 96361; 96374; 99222; 99238; 99285-25; A9270-GY; J1644; J2405; J7030; U0002

== ENCOUNTER 2024-02-07 11:52 | Emergency (ER) | payer OTHER ==
[2024-02-07] MEDS: Sodium Chloride 0.9% 10 ML Syringe FLUSH PRN (12:47)
[2024-02-07] MEDS: Sodium Chloride 0.9% 2.5 ML Syringe FLUSH PRN (12:48)
[2024-02-07 12:54] LABS: BASOPHILS ABSOLUTE AUTO 0.05 K/uL (0.00-0.20); BASOPHILS PERCENT AUTO 0.6 % (0.0-1.0); EOSINOPHILS ABSOLUTE AUTO 0.17 K/uL (0.00-0.45); EOSINOPHILS PERCENT AUTO 1.9 % (0.0-6.0); HEMATOCRIT 45.2 % (42.0-52.0); HEMOGLOBIN 15.3 g/dL (14.0-18.0); IMMATURE GRAN ABSOLUTE AUTO 0.01 K/uL (0.00-0.05); IMMATURE GRAN PERCENT AUTO 0.1 % (0.0-0.4); LYMPHOCYTES ABSOLUTE AUTO 2.13 K/uL (1.00-4.80); LYMPHOCYTES PERCENT AUTO 23.6 % (24.0-44.0); MEAN CORPUSCULAR HEMOGLOBIN 26.8 pg (28.0-32.0); MEAN CORPUSCULAR HGB CONC 33.8 g/dL (32.0-36.0); MEAN CORPUSCULAR VOLUME 79.2 fL (83.0-99.0); MEAN PLATELET VOLUME 9.4 fL (9.4-12.4); MONOCYTES ABSOLUTE AUTO 0.86 K/uL (0.00-0.80); MONOCYTES PERCENT AUTO 9.5 % (0.0-8.0); NEUTROPHILS ABSOLUTE AUTO 5.79 K/uL (1.80-7.70); NEUTROPHILS PERCENT AUTO 64.3 % (41.0-71.0); PLATELET COUNT,PLT 321 K/uL (150-400); RED BLOOD CELL COUNT 5.71 M/uL (4.52-5.90); WHITE BLOOD CELL COUNT,WBC 9.01 K/uL (3.9-11.3)
[2024-02-07 13:17] LABS: CALCIUM 8.8 mg/dL (8.5-10.1); CARBON DIOXIDE,CO2 26.2 mmol/L (21.0-32.0); EST CRCL DRUG DOSING (CG) 46.05 mL/min; POTASSIUM,K 3.9 mmol/L (3.5-5.1)
[2024-02-07] MEDS: Sodium Chloride 0.9% 1,000 ML IV ONE (13:46)
[2024-02-07 16:01] LABS: APPEARANCE,URINE SLT CLOUDY; BILIRUBIN,URINE NEGATIVE (NEGATIVE); COLOR,URINE YELLOW; GLUCOSE,URINE NEGATIVE (NEGATIVE); KETONES,URINE NEGATIVE (NEGATIVE); LEUKOCYTE ESTERASE,URINE NEGATIVE (NEGATIVE); NITRITE,URINE NEGATIVE (NEGATIVE); OCCULT BLOOD,URINE NEGATIVE (NEGATIVE); PH,URINE 5.5 (5.0-8.0); PROTEIN,URINE NEGATIVE (NEGATIVE); UROBILINOGEN,URINE 0.2 EU/dL (<2.0)
== END 2024-02-07 16:21 | disposition left against medical advice (07) ==
LOC: MW.ED 11:52
DX: N17.9 Acute kidney failure, unspecified (principal); K21.9 Gastro-esophageal reflux disease without esophagitis; Z79.899 Other long term (current) drug therapy
CPT/HCPCS: 36415; 51702; 74176; 80048; 81003; 85025; 96360; 99284; J3490; J7030

== ENCOUNTER 2025-07-09 14:19 | Emergency (ER) | payer OTHER ==
[2025-07-09 15:25] LABS: BASOPHILS ABSOLUTE AUTO 0.06 K/uL (0.00-0.20); BASOPHILS PERCENT AUTO 0.7 % (0.0-1.0); EOSINOPHILS ABSOLUTE AUTO 0.24 K/uL (0.00-0.45); EOSINOPHILS PERCENT AUTO 3.0 % (0.0-6.0); IMMATURE GRAN ABSOLUTE AUTO 0.01 K/uL (0.00-0.05); IMMATURE GRAN PERCENT AUTO 0.1 % (0.0-0.4); LYMPHOCYTES ABSOLUTE AUTO 1.07 K/uL (1.00-4.80); LYMPHOCYTES PERCENT AUTO 13.3 % (24.0-44.0); MEAN PLATELET VOLUME 9.9 fL (9.4-12.4); MONOCYTES ABSOLUTE AUTO 0.44 K/uL (0.00-0.80); MONOCYTES PERCENT AUTO 5.5 % (0.0-8.0); NEUTROPHILS ABSOLUTE AUTO 6.20 K/uL (1.80-7.70); NEUTROPHILS PERCENT AUTO 77.4 % (41.0-71.0); NRBC ABSOLUTE 0.00 K/uL (0.00-0.02); NRBC PERCENT 0.0 /100WBC (0.0-0.2); PLATELET COUNT,PLT 252 K/uL (150-400); RED BLOOD CELL COUNT 5.09 M/uL (4.52-5.90); WHITE BLOOD CELL COUNT,WBC 8.02 K/uL (3.9-11.3)
[2025-07-09 15:43] LABS: A/G RATIO 1.1 (0.9-1.6); ALANINE AMINOTRANSFERASE,ALT 34.0 IU/L (14-63); ASPARTATE AMNIOTRANSFERASE,AST 25.0 IU/L (15-37); BILIRUBIN TOTAL 0.4 mg/dL (0.2-1.0); BLOOD UREA NITROGEN,BUN 18.0 mg/dL (7.0-18.0); CARBON DIOXIDE,CO2 25.4 mmol/L (21.0-32.0); CHLORIDE,CL 106.0 mmol/L (98-107); CREATININE 1.0 mg/dL (0.8-1.3); EST CRCL DRUG DOSING (CG) 76.95 mL/min; GLUCOSE RANDOM 96.0 mg/dL (74-106); POTASSIUM,K 3.7 mmol/L (3.5-5.1); PROTEIN TOTAL,TP 6.9 g/dL (6.4-8.2); SODIUM,NA 141.0 mmol/L (136-148)
[2025-07-09 15:45] LABS: ESTIMATED GFR 87.0 mL/min (>60)
[2025-07-09 16:52] LABS: APPEARANCE,URINE CLEAR; GLUCOSE,URINE NEGATIVE (NEGATIVE); OCCULT BLOOD,URINE NEGATIVE (NEGATIVE)
[2025-07-09] MEDS: Magnesium Citrate Solution 296 ML Bottle PO ONE (17:32)
[2025-07-09 19:39] LABS: AMPHETAMINES SCREEN, URINE PRESUMPTIVE POSITIVE (CUTOFF=500); BUPRENORPHINE SCREEN,URINE NEGATIVE (CUTOFF=10); METHADONE SCREEN, URINE NEGATIVE (CUTOFF=200); METHAMPHETAMINES SCREEN, URINE PRESUMPTIVE POSITIVE (CUTOFF=500); OXYCODONE SCREEN,URINE NEGATIVE (CUT0FF=100); PCP SCREEN,URINE NEGATIVE (CUTOFF=25); THC SCREEN,URINE 20 NG/ML NEGATIVE (CUTOFF=50)
== END 2025-07-09 21:44 | disposition home or self-care (01) ==
LOC: MW.ED 14:19
DX: K56.41 Fecal impaction (principal); R42 Dizziness and giddiness; I10 Essential (primary) hypertension; F15.10 Other stimulant abuse, uncomplicated; R33.9 Retention of urine, unspecified; R30.0 Dysuria; Z91.148 Patient's other noncompliance with medication regimen for other reason
CPT/HCPCS: 36415; 51702; 70450; 70450-26; 74019; 74019-26; 80053; 80305; 81003; 85025; 99284; A9270-GY